=== PATIENT | female | born 1990 | race Two or more races ===

== ENCOUNTER 2018-08-31 17:07 | Emergency (ER) | payer SELFPAY ==
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
== END 2018-08-31 17:43 | disposition home or self-care (01) ==
LOC: MW.ED 17:07
DX: T21.12XA Burn of first degree of abdominal wall, initial encounter (principal)
CPT/HCPCS: 99282; 99283